=== PATIENT | male | born 1980 | race African-American/Black ===

== ENCOUNTER 2020-11-25 20:36 | Emergency (ER) | payer MEDICAID ==
[~2020-11-25] VITALS: Ht 177.8 cm; Wt 71.9 kg
[2020-11-25 20:50] VITALS: BP 127/71
== END 2020-11-25 22:44 | disposition home or self-care (01) ==
LOC: EMS 20:39
DX: T40.1X1A Poisoning by heroin, accidental (unintentional), initial encounter (principal); Y92.89 Other specified places as the place of occurrence of the external cause
CPT/HCPCS: 99283; Z7502